=== PATIENT | male | born 1960 | race Hispanic/Latino ===

== ENCOUNTER → 2018-08-28 | Outpatient (CLI) | payer OTHER | END | disposition home or self-care (01) | LOC: RAH 14:23 | PROVIDERS: ATTEND Internal Medicine | DX: M47.817 Spondylosis without myelopathy or radiculopathy, lumbosacral region (principal); M48.07 Spinal stenosis, lumbosacral region; M25.78 Osteophyte, vertebrae | CPT/HCPCS: 72100 ==

== ENCOUNTER 2022-07-12 05:11 | Emergency (ER) | payer OTHER ==
[~2022-07-12] VITALS: Ht 157.5 cm; Wt 62.1 kg
[2022-07-12 05:50] LABS: BASOPHILS % (AUTO) 0.4 % (0.0-5.0); LYMPHOCYTES % (AUTO) 13.8 % (21.0-51.0); MEAN CORPUSCULAR HEMOGLOBIN 29.9 pg (27.0-33.0); MEAN CORPUSCULAR HGB CONC 33.9 g/dL (32.0-36.0); MEAN CORPUSCULAR VOLUME 88.2 fL (79-99); MONOCYTES % (AUTO) 5.7 % (3.0-13.0); NEUTROPHILS % (AUTO) 79.3 % (40.0-77.0); PLATELET COUNT (AUTO) 96 K/uL (130-400); RED BLOOD CELL COUNT(AUTO) 4.08 MIL/uL (4.50-6.20); RED CELL DISTRIBUTION WIDTH 12.5 % (11.0-15.5); WHITE BLOOD COUNT (AUTO) 5.3 K/uL (4.8-10.8)
[2022-07-12] MEDS ORDERED: METOCLOPRAMIDE 10 MG/2 ML VIAL IVP ONE (06:00)
[2022-07-12] MEDS ORDERED: FAMOTIDINE 20MG VIAL IV ONE (06:00)
[2022-07-12] MEDS ORDERED: ACETAMINOPHEN 500 MG TABLET PO ONE ×2 (06:00→14:30)
[2022-07-12 06:09] LABS: INR 1.04 (0.85-1.15); PROTHROMBIN TIME 11.3 SEC (9.6-11.6)
[2022-07-12 06:11] LABS: PARTIAL THROMBOPLASTIN TIME 29.6 SEC (26.3-35.5)
[2022-07-12] MEDS ORDERED: LEVOFLOXACIN 750 MG/D5W 150ML BAG IVPB SCH (06:30)
[2022-07-12 06:37] LABS: ALBUMIN 2.2 g/dL (3.5-5.0); CREATININE 0.9 mg/dL (0.5-1.5); POTASSIUM 5.8 mmol/L (3.5-5.1); TOTAL PROTEIN, SERUM 6.4 g/dL (6.0-8.3)
[2022-07-12] MEDS ORDERED: LACTATED RINGERS 1000ML IV SCH (06:42)
[2022-07-12 06:44] LABS: APPEARANCE,URINE CLEAR (CLEAR); BILIRUBIN,URINE NEGATIVE (NEGATIVE); COLOR,URINE YELLOW (YELLOW); GLUCOSE, URINE (UA) TRACE mg/dL (NEGATIVE); KETONES,URINE 10 mg/dL (NEGATIVE); LEUKOCYTE ESTERASE ,URINE NEGATIVE Leu/uL (NEGATIVE); NITRATE,URINE NEGATIVE (NEGATIVE); OCCULT BLOOD,URINE NEGATIVE (NEGATIVE); PH,URINE 6.5 (5.0-8.0); PROTEIN,URINE 200 mg/dL (NEGATIVE); UROBILINOGEN,URINE 0.2 mg/dL (0.2-1.0)
[2022-07-12] MEDS ORDERED: 0.9%NACL 1000ML 2,000 ML IV ONE (07:00)
[2022-07-12] MEDS ORDERED: 0.9%NACL 1000ML 1,000 ML IV ONE (07:00)
[2022-07-12 07:02] LABS: MUCUS,URINE RARE LPF (None Seen); WBC,URINE 0-1 /HPF (0-1)
[2022-07-12] MEDS ORDERED: IOHEXOL-350 75 ML VIAL IV ONE (10:20)
[2022-07-12] MEDS ORDERED: ONDA4TAB10 PO (12:12)
[2022-07-12] MEDS ORDERED: AMOX1TAB16 PO (12:12)
[2022-07-12] MEDS ORDERED: IOHEXOL 350 MG/ML 100ML INFUS..BTL IV ONE (13:32)
[2022-07-12 14:26] VITALS: BP 170/77
== END 2022-07-12 14:30 | disposition home or self-care (01) ==
LOC: EDH 05:11
DX: K57.92 Diverticulitis of intestine, part unspecified, without perforation or abscess without bleeding (principal); R11.2 Nausea with vomiting, unspecified; E86.0 Dehydration; I10 Essential (primary) hypertension; E11.9 Type 2 diabetes mellitus without complications; Z20.822 Contact with and (suspected) exposure to COVID-19
CPT/HCPCS: 99285; 74177; 96365; 96366; 96375; 87635; 82550; 84484; 80053; 83690; 85025; 85610; 85730; 87040 ×2; 87804 ×2; 83605; 81001; 36415; 93005; C9803; J3490; J1956; J7030; J2765; Q9967 ×2

== ENCOUNTER → 2022-12-01 | Outpatient (CLI) | payer OTHER ==
[~2022-12-01] MED LIST: AMOX1TAB16 PO; ONDA4TAB10 PO
== END | disposition home or self-care (01) ==
LOC: OIH 11:16
PROVIDERS: ATTEND Internal Medicine Cardiovascular Disease
DX: Z13.6 Encounter for screening for cardiovascular disorders (principal)
CPT/HCPCS: 75571

== ENCOUNTER 2023-05-30 15:17 | Inpatient (IN) | payer OTHER ==
[~2023-05-30] VITALS: Ht 157.5 cm; Wt 64.5 kg
[2023-05-30] MEDS: CLOPIDOGREL 300MG TAB PO ONE (16:25)
[2023-05-30 16:49] LABS: HEMATOCRIT 37.1 % (42-54); MEAN CORPUSCULAR HGB CONC 33.4 g/dL (32.0-36.0); MEAN CORPUSCULAR VOLUME 92.8 fL (79-99); RED CELL DISTRIBUTION WIDTH 12.8 % (11.0-15.5); WHITE BLOOD COUNT (AUTO) 4.8 K/uL (4.8-10.8)
[2023-05-30 17:03] LABS: POTASSIUM 4.8 mmol/L (3.5-5.1)
[2023-05-30] MEDS ORDERED: POTASSIUM CHLORIDE 10% ELIXIR 20 MEQ/15 ML UDCUP PO PRN (23:30)
[2023-05-30] MEDS ORDERED: MAGNESIUM 2GM PREMIX 50ML 50 ML IV PRN (23:30)
[2023-05-30] MEDS ORDERED: GLUCAGON 1MG KIT 1 MG ML IM PRN (23:30)
[2023-05-30] MEDS ORDERED: ONDANSETRON 4MG INJ IV PRN (23:30)
[2023-05-30] MEDS ORDERED: KCL 20 MEQ ERTAB PO PRN (23:30)
[2023-05-30] MEDS ORDERED: POTASSIUM CHLORIDE 20MEQ/100ML 100 ML IV PRN (23:30)
[2023-05-30] MEDS ORDERED: DEXTROSE 50%-WATER 50 ML DISP.SYRIN IV PRN (23:30)
[2023-05-31] MEDS: HYDRALAZINE 20MG/ML VIAL IV PRN (00:17)
[2023-05-31 00:42] VITALS: BP 146/54; PULSE 79; RESP 19
[2023-05-31 04:00] VITALS: BP 150/63; PULSE 80; RESP 20
[2023-05-31 04:35] LABS: BASOPHILS # (AUTO) 0.03 K/uL (0.00-0.20); BASOPHILS % (AUTO) 0.5 % (0.0-5.0); EOSINOPHILS # (AUTO) 0.11 K/uL (0.00-0.70); EOSINOPHILS % (AUTO) 1.8 % (0.0-8.0); HEMATOCRIT 36.6 % (42-54); IMMATURE GRANULOCYTE ABSOLUTE 0.04 K/uL (0-1); LYMPHOCYTES # (AUTO) 1.7 K/uL (1.0-4.8); LYMPHOCYTES % (AUTO) 27.7 % (21.0-51.0); MEAN CORPUSCULAR HGB CONC 33.6 g/dL (32.0-36.0); MEAN CORPUSCULAR VOLUME 92.2 fL (79-99); MONOCYTES # (AUTO) 0.5 K/uL (0.1-1.0); MONOCYTES % (AUTO) 8.6 % (3.0-13.0); NEUTROPHILS # (AUTO) 3.7 K/uL (1.8-7.7); NEUTROPHILS % (AUTO) 60.7 % (40.0-77.0); PLATELET COUNT (AUTO) 222 K/uL (130-400); RED BLOOD CELL COUNT(AUTO) 3.97 MIL/uL (4.50-6.20); RED CELL DISTRIBUTION WIDTH 12.8 % (11.0-15.5); WHITE BLOOD COUNT (AUTO) 6.1 K/uL (4.8-10.8)
[2023-05-31 04:53] LABS: HEMOGLOBIN A1C 7.7 % (4.0-6.0)
[2023-05-31 05:25] LABS: ALBUMIN 2.8 g/dL (3.5-5.0); BILIRUBIN,TOTAL 0.1 mg/dL (0.2-1.0); MAGNESIUM 2.1 mg/dL (1.80-2.40); TOTAL PROTEIN, SERUM 5.9 g/dL (6.0-8.3)
[2023-05-31] MEDS: INSULIN HUMULIN R 100 UNIT/ML 3ML SQ SCH (07:30)
[2023-05-31 08:00] VITALS: BP 138/52; PULSE 68; RESP 17; O2SAT 100
[2023-05-31] MEDS: FAMOTIDINE 20MG TAB PO SCH (09:57)
[2023-05-31] MEDS: ASPIRIN 81 MG EC TAB PO SCH (09:57)
[2023-05-31] MEDS: CLOPIDOGREL 75MG TAB PO SCH (09:57)
[2023-05-31] MEDS: ENOXAPARIN SODIUM 30 MG/0.3 ML SQ SCH (09:58)
[2023-05-31] MEDS: KETOROLAC 15MG/ML VIAL (15MG/ML) IV PRN (10:03)
[2023-05-31 16:00] VITALS: BP 153/60; PULSE 59; RESP 18
== END 2023-05-31 19:53 | disposition home or self-care (01) | DRG 301 ==
LOC: EDH 15:17 → EDHIP 23:15 → 4BH 23:41
PROVIDERS: ADMIT Internal Medicine; ATTEND Internal Medicine
DX: E11.51 Type 2 diabetes mellitus with diabetic peripheral angiopathy without gangrene (principal); I10 Essential (primary) hypertension; D64.9 Anemia, unspecified; I48.91 Unspecified atrial fibrillation; E78.00 Pure hypercholesterolemia, unspecified; Z79.02 Long term (current) use of antithrombotics/antiplatelets; Z79.82 Long term (current) use of aspirin
CPT/HCPCS: 36415; 80048; 80053; 80061; 82948; 83036; 83735; 85025; 85027; 85378; 93926; 93971; G0378; J0360; J1650; J1885